=== PATIENT | female | born 1960 | race Caucasian/White ===

== ENCOUNTER 2017-11-24 15:32 | Outpatient (CLI) | payer BC | END 2017-11-24 15:33 | disposition home or self-care (01) | LOC: BICMRI 15:32 | PROVIDERS: ATTEND Family Medicine | DX: M54.5 Low back pain (principal); M99.83 Other biomechanical lesions of lumbar region; M99.84 Other biomechanical lesions of sacral region; M51.86 Other intervertebral disc disorders, lumbar region; M51.87 Other intervertebral disc disorders, lumbosacral region; M48.8X6 Other specified spondylopathies, lumbar region; M51.26 Other intervertebral disc displacement, lumbar region | CPT/HCPCS: 72148 ==

== ENCOUNTER 2017-12-27 08:17 | Outpatient (CLI) | payer BC | END 2017-12-27 08:18 | disposition home or self-care (01) | LOC: BICRAD 08:17 | PROVIDERS: ATTEND Orthopaedic Surgery Orthopaedic Surgery of the Spine | DX: M47.26 Other spondylosis with radiculopathy, lumbar region (principal) | CPT/HCPCS: 72100 ==